=== PATIENT | female | born 1945 | race Caucasian/White ===

== ENCOUNTER 2018-09-24 12:29 | Outpatient (CLI) | payer MEDICARE ==
[2018-09-24] MEDS ORDERED: ISOVUE-370 76%-LOCM 1 ML ONE (15:09)
--- NOTE | 2018-09-24 15:31 | CT ---
CTA ABDOMEN AND PELVIS AND BILATERAL LOWER EXTREMITIES WITH CONTRAST: Date: 09/24/18 Multiple axial tomograms obtained through the abdomen and pelvis and lower extremities following aort ogram protocol with multiplanar reconstruction and 3D postprocessing. INDICATION: Peripheral arterial disease. Atherosclerosis. Left lower extremity arterial disease. Left lower extre mity pain and claudication. FINDINGS: The abdominal aorta shows atherosclerotic calcification. No aneurysmal dilatation. No evidence of dis section. No stenosis seen at the origin of the celiac artery. Mild stenosis at the origin of the superior mese nteric artery, however, this does not appear to be hemodynamically significant. Superior mesenteric a rtery trunk is patent with mild atherosclerotic change. No significant stenosis in the SMA trunk. Both renal arteries are patent. There is evidence of moderate stenosis in the proximal right renal ar linda just beyond its origin from what appeared just to be soft plaque. This stenosis may be hemodynam ically significant (in the 50% diameter range). No significant stenosis in the left renal artery is i dentified. Aortic bifurcation shows atherosclerotic calcification. No evidence of significant stenosis in either common iliac artery. Right lower extremity: The right internal and external iliacs are patent. Atherosclerotic disease seen in the internal iliac . The common femoral shows atherosclerotic disease and evidence of moderate stenosis which does appear hemodynamically significant of at least 50% diameter. There is moderate stenosis at the origin of the right superficial femoral artery with stenosis estima kaylah at greater than 50%. Diffuse atherosclerotic disease throughout the right superficial femoral artery with multiple areas o f high grade stenosis. There is a very high grade stenosis in the mid thigh. There is suggestion of a stent in this portion of the right superficial femoral artery, mid thigh. There appears to be high g rade stenosis within this stent. There is high grade stenosis at Ki's canal. Collateral vessels a rise at this location. Atherosclerotic changes seen in the right popliteal with moderate stenosis. Popliteal trifurcates below the knee space. There is three vessel runoff to the ankle. Left lower extremity: The left internal and external iliacs are patent. Moderate atherosclerotic calcification in the left common femoral and occlusion at the origin of the left superficial femoral artery. There appears to b e reconstitution of Ki's canal via collaterals. Severe atherosclerotic disease involving the left popliteal with areas of high grade stenosis. Popliteal trifurcates below the knee space and there is three vessel seen to the ankle. Soft Tissues: Liver, spleen, and pancreas unremarkable. There is abnormal density in the gallbladder consistent wit h cholelithiasis. Both adrenal glands are prominent, suggesting adrenal hyperplasia. There is evidence of focal nodule in the right adrenal gland measuring up to 2.0 cm. Small bowel loops unremarkable. There is diverticulosis of the left colon. There is focal inflammation surrounding a diverticulum in the lower left colon, in the left lower quadrant, consistent with diverticulitis. No extraluminal flu id or gas or abscess seen. There is an umbilical hernia with mesenteric fat herniated into the hernia. Hernia sac within the sub cutaneous tissues measures 6.0 cm width. IMPRESSION: 1. Severe arterial disease on the left. There is occlusion at the origin of the left superficial fem oral artery. Reconstitution at Ki's canal with diffuse disease throughout the left popliteal and multiple areas of high grade stenosis. 2. Also significant disease in the right lower extremity. Diffuse atherosclerotic disease with high grade stenosis in the right superficial femoral artery and right popliteal as described above. 3. Evidence of significant stenosis in the proximal right renal artery. 4. There is evidence of acute diverticulitis involving the distal left descending colon in the anter ior left lower quadrant. 5. Evidence of cholelithiasis. 6. Bilateral adrenal hyperplasia with evidence of a right adrenal nodule, which is indeterminate. 7. Umbilical hernia. Findings discussed with Dr. Douglas. CODE CR. POS: [facility]
== END 2018-09-24 12:30 | disposition home or self-care (01) ==
LOC: BICCT 12:29
PROVIDERS: ATTEND Thoracic Surgery (Cardiothoracic Vascular Surgery)
DX: I70.90 Unspecified atherosclerosis (principal); I77.9 Disorder of arteries and arterioles, unspecified; I77.1 Stricture of artery; I70.201 Unspecified atherosclerosis of native arteries of extremities, right leg; K80.20 Calculus of gallbladder without cholecystitis without obstruction; I70.1 Atherosclerosis of renal artery; K57.32 Diverticulitis of large intestine without perforation or abscess without bleeding; E27.8 Other specified disorders of adrenal gland; K42.9 Umbilical hernia without obstruction or gangrene
CPT/HCPCS: 75635; 82565; Q9966

== ENCOUNTER 2019-01-18 10:15 | Inpatient (IN) | payer MEDICARE ==
[2019-02-02] MEDS ORDERED: ceFAZolin Sodium (SDC) 2 GM/100 ML BAG ONE (08:15)
[2019-02-02 08:20] LABS: #Eosinphils 0.4 thou/uL (0.0-0.7); #Lymphocytes 1.4 thou/uL (1.20-3.40); #Monocytes 0.6 thou/uL (0.11-0.59); #Neutrophils 5.3 thou/uL (1.40-6.50); %Basophils 0.6 % (0.0-1.0); %Eosinophils 4.8 % (0.0-10.0); %Lymphocytes 18.5 % (21.0-51.0); %Monocytes 7.2 % (0.0-10.0); %Neutrophils 68.9 % (42.0-75.0); Mean Corpuscular HGB CONC 34.1 g/dL (32.0-36.0); Mean Corpuscular Hemoglobin 30.2 pg (27.0-31.0); Mean Corpuscular Volume 88.8 fL (78.0-98.0); Platelet Count 295 thou/uL (130-400); RBC Distribution Width 11.9 % (11.5-14.5); Red Blood Cell (RBC) Count 4.65 mill/uL (4.20-5.40); White Blood Cell (WBC) Count 7.7 thou/uL (4.8-10.8)
[2019-02-02 08:37] LABS: Anion Gap 14 mmol/L (10-20); BUN (Urea Nitrogen) 17 mg/dL (9.8-20.1); Calc. Creatinine Clearance 67 mL/min (70-130); Calcium 10.5 mg/dL (7.8-10.44); Carbon Dioxide 23 mmol/L (23-31); Chloride 105 mmol/L (98-107); Estimated GFR-MDRD 58; Glucose 145 mg/dL (83-110); Potassium 4.9 mmol/L (3.5-5.1); Sodium 137 mmol/L (136-145)
[2019-02-02] MEDS ORDERED: Heparin 5,000 UNITS/ML VIAL ONE (08:59)
[2019-02-02] MEDS ORDERED: Protamine Sulfate 50 MG/5 ML VIAL ONE (08:59)
[2019-02-02] MEDS ORDERED: Fentanyl 100 MCG/2 ML VIAL ONE ×3 (09:06→15:40)
[2019-02-02] MEDS ORDERED: Midazolam HCl 2 mg/2 ml Vial ONE (09:17)
[2019-02-02] MEDS ORDERED: Lidocaine 1% PF 5 ML VIAL ONE ×2 (09:18→11:00)
[2019-02-02] MEDS ORDERED: Rocuronium Bromide 10 MG/ML (10ML VIAL) ONE (11:00)
[2019-02-02] MEDS ORDERED: ePHEDrine 50 MG/ML VIAL ONE (11:00)
[2019-02-02] MEDS ORDERED: PROPOFOL 200 MG/20 ML VIAL ONE (11:00)
[2019-02-02] MEDS ORDERED: Ondansetron PF 4 MG/2 ML Vial ONE (11:00)
[2019-02-02] MEDS ORDERED: PHENYLEPHRINE-NS 100 MCG/ML 10 ML SYRINGE ONE (11:00)
[2019-02-02] MEDS ORDERED: Heparin 10,000 UNITS/ 10 ML VIAL ONE (11:00)
[2019-02-02] MEDS ORDERED: Phenylephrine HCL 10 MG/ML VIAL ONE (11:12)
[2019-02-02] MEDS ORDERED: Promethazine HCl 25 MG/ML VIAL SLOW IVP PRN (15:15)
[2019-02-02] MEDS ORDERED: Promethazine HCl 25 MG/ML VIAL IM PRN (15:15)
[2019-02-02] MEDS ORDERED: Ondansetron HCl/PF 4 MG/2 ML Vial IVP PRN (15:15)
[2019-02-02] MEDS ORDERED: hydrALAZINE 20 MG/ML VIAL SLOW IVP PRN (16:09)
[2019-02-02] MEDS ORDERED: Acetaminophen 325 MG TAB PO PRN (16:09)
[2019-02-02] MEDS ORDERED: PROVENTIL INHALER 6.7 G (200 INHALATIONS) INH PRN (16:09)
[2019-02-02] MEDS ORDERED: Lactated Ringer's 1,000 ML IV SCH (16:09)
[2019-02-02] MEDS ORDERED: Ondansetron PF 4 MG/2 ML Vial IVP PRN (16:09)
[2019-02-02] MEDS: Fentanyl 100 MCG/2 ML VIAL SLOW IVP PRN ×2 (16:50→21:24)
[2019-02-02 17:30] VITALS: BMI 34.5
[2019-02-02] MEDS: Mometasone/Formoterol 120 PUFF INHALER INH SCH (18:09)
[2019-02-02] MEDS: Ramipril 5 MG CAP PO SCH (20:21)
[2019-02-02] MEDS: Carvedilol 6.25 MG TAB PO SCH (20:22)
[2019-02-02] MEDS: Amlodipine 5 MG TAB PO SCH (20:22)
[2019-02-02] MEDS: Atorvastatin Calcium 10 MG TAB PO SCH (20:22)
[2019-02-02] MEDS: Dorzolamide HCl 2% Ophth Soln 10 ml Bottle EA EYE SCH (20:23)
[2019-02-02] MEDS: Gabapentin 300 MG CAP PO SCH (20:23)
[2019-02-02] MEDS: Latanoprost 0.005% Ophth Soln 2.5 ml Bottle EA EYE SCH (20:23)
[2019-02-02] MEDS: HYDROcodone/Acetaminophen 5/325 mg Tablet PO PRN (20:30)
--- NOTE | 2019-02-02 20:38 | OP ---
DATE OF PROCEDURE: 02/02/2019 PREOPERATIVE DIAGNOSIS: Nonhealing ulcer, left foot, with peripheral arterial disease. PROCEDURE PERFORMED: Left common and profunda femoral endarterectomy with saphenous vein patch angioplasty and then left femoral to popliteal bypass below the knee with a 6-mm thin-walled ringed Bullock-Stuart. ANESTHESIA: General. ESTIMATED BLOOD LOSS: 300. DESCRIPTION OF PROCEDURE: After adequate anesthesia had been obtained, tape was used to elevate her abdominal panniculus off her groin area, and she was then placed in the Trendelenburg position and prepped and draped. Incision was made in the left groin, isolating the common femoral artery from the external iliac artery above the inguinal ligament to about 4 cm down the profunda branch into the bifurcation. There was also a posterior branch in the mid common femoral artery controlled. Following this, a segment of saphenous vein was harvested, and it was very small, but usable for a patch. The popliteal artery was isolated below the knee and was heavily calcified with skip areas of soft plaque. A tunneler was then brought through a tunnel posterior to the knee, and the patient was heparinized. Popliteal artery was opened and partially endarterectomized to allow the Bullock-Stuart graft to be sewn into place. Following completion of this, the graft which had already been brought through the tunnel was clamped. Clamps were applied to the external iliac artery, circumflex, femoral branches, and profunda branches. Arteriotomy was then made, and a heavily-calcified common femoral artery was slowly dealt with removing calcium and segments. The resulting femoral artery was rather thin-walled. The profunda femoral artery was essentially occluded prior to the bifurcation and then plaque extended into both branches, and this was removed as best could be done. The area was thoroughly irrigated, and a 6-0 Prolene suture was then used to sew a long vein patch on this arteriotomy. Following this, it was inspected for hemostasis. Following this, the incision was made in the middle of the vein, used for the patch, and the Bullock-Stuart graft anastomosed proximally. Flow was then restored with good pulsations distally. After obtaining hemostasis, the wound was irrigated and closed in layers. Job ID: [id number]
[2019-02-02] MEDS: Insulin Regular 300 UNITS/3 ML VIAL SC PRN (21:27)
[2019-02-02] MEDS: CEFAZOLIN 2 GM, Admixture Fee 1 EACH in Sodium Chloride 0.9% 100 ML IVPB SCH (23:48)
[2019-02-03 04:18] LABS: #Eosinphils 0.3 thou/uL (0.0-0.7); #Lymphocytes 1.2 thou/uL (1.20-3.40); #Neutrophils 6.3 thou/uL (1.40-6.50); %Basophils 0.2 % (0.0-1.0); %Eosinophils 2.9 % (0.0-10.0); %Lymphocytes 14.1 % (21.0-51.0); %Monocytes 10.8 % (0.0-10.0); Hemoglobin 10.9 g/dL (12.0-16.0); Mean Corpuscular HGB CONC 33.1 g/dL (32.0-36.0); Mean Corpuscular Hemoglobin 29.9 pg (27.0-31.0); Mean Corpuscular Volume 90.5 fL (78.0-98.0); Mean Platelet Volume 6.7 fL (7.4-10.4); Platelet Count 233 thou/uL (130-400); RBC Distribution Width 11.8 % (11.5-14.5); Red Blood Cell (RBC) Count 3.66 mill/uL (4.20-5.40); White Blood Cell (WBC) Count 8.7 thou/uL (4.8-10.8)
[2019-02-03 05:07] LABS: Anion Gap 9 mmol/L (10-20); BUN (Urea Nitrogen) 13 mg/dL (9.8-20.1); Calc. Creatinine Clearance 77 mL/min (70-130); Calcium 8.1 mg/dL (7.8-10.44); Carbon Dioxide 24 mmol/L (23-31); Chloride 106 mmol/L (98-107); Estimated GFR-MDRD 67; Glucose 118 mg/dL (83-110); Potassium 4.3 mmol/L (3.5-5.1); Sodium 135 mmol/L (136-145)
[2019-02-03] MEDS: Levothyroxine Sodium 112 MCG TAB PO SCH (05:32)
[2019-02-03] MEDS: HYDROcodone/Acetaminophen 5/325 mg Tablet PO PRN ×3 (05:32→22:58)
[2019-02-03] MEDS: Mometasone/Formoterol 120 PUFF INHALER INH SCH ×2 (07:45→19:36)
[2019-02-03] MEDS: Dorzolamide HCl 2% Ophth Soln 10 ml Bottle EA EYE SCH ×2 (08:16→20:30)
[2019-02-03] MEDS: CEFAZOLIN 2 GM, Admixture Fee 1 EACH in Sodium Chloride 0.9% 100 ML IVPB SCH (08:16)
[2019-02-03] MEDS: Gabapentin 300 MG CAP PO SCH ×3 (08:17→20:30)
[2019-02-03] MEDS: Ramipril 5 MG CAP PO SCH ×2 (08:17→20:29)
[2019-02-03] MEDS: Carvedilol 6.25 MG TAB PO SCH ×2 (08:17→20:29)
[2019-02-03] MEDS: metFORMIN 500 MG TAB PO SCH ×2 (08:18→18:32)
[2019-02-03] MEDS: Clopidogrel Bisulfate 75 MG TAB PO SCH (08:18)
[2019-02-03] MEDS: Amlodipine 5 MG TAB PO SCH (08:18)
[2019-02-03] MEDS: Aspirin Chewable 81 MG TAB PO SCH (08:23)
[2019-02-03] MEDS: Insulin Regular 300 UNITS/3 ML VIAL SC PRN (11:38)
[2019-02-03] MEDS ORDERED: CEFAZOLIN 2 GM in Premix Bag 1 BAG IVPB SCH (16:00)
[2019-02-03] MEDS: Fentanyl 100 MCG/2 ML VIAL SLOW IVP PRN (20:27)
[2019-02-03] MEDS: Atorvastatin Calcium 10 MG TAB PO SCH (20:29)
[2019-02-03] MEDS: Latanoprost 0.005% Ophth Soln 2.5 ml Bottle EA EYE SCH (20:31)
[2019-02-04 05:58] LABS: #Eosinphils 0.2 thou/uL (0.0-0.7); #Lymphocytes 1.2 thou/uL (1.20-3.40); #Monocytes 1.1 thou/uL (0.11-0.59); #Neutrophils 5.8 thou/uL (1.40-6.50); %Basophils 0.3 % (0.0-1.0); %Eosinophils 2.6 % (0.0-10.0); %Lymphocytes 14.3 % (21.0-51.0); %Monocytes 13.2 % (0.0-10.0); %Neutrophils 69.7 % (42.0-75.0); Mean Corpuscular HGB CONC 33.2 g/dL (32.0-36.0); Mean Corpuscular Hemoglobin 30.2 pg (27.0-31.0); Mean Corpuscular Volume 90.8 fL (78.0-98.0); Mean Platelet Volume 7.1 fL (7.4-10.4); Platelet Count 194 thou/uL (130-400); RBC Distribution Width 11.7 % (11.5-14.5); White Blood Cell (WBC) Count 8.4 thou/uL (4.8-10.8)
[2019-02-04] MEDS ORDERED: Furosemide 40 MG TAB PO SCH (06:00)
[2019-02-04] MEDS ORDERED: Furosemide 20 MG TAB PO SCH (06:00)
[2019-02-04 06:14] LABS: Anion Gap 12 mmol/L (10-20); BUN (Urea Nitrogen) 14 mg/dL (9.8-20.1); Calc. Creatinine Clearance 75 mL/min (70-130); Calcium 7.9 mg/dL (7.8-10.44); Carbon Dioxide 23 mmol/L (23-31); Chloride 105 mmol/L (98-107); Estimated GFR-MDRD 66; Glucose 114 mg/dL (83-110); Sodium 136 mmol/L (136-145)
[2019-02-04] MEDS: HYDROcodone/Acetaminophen 5/325 mg Tablet PO PRN ×4 (06:17→21:20)
[2019-02-04] MEDS: Levothyroxine Sodium 112 MCG TAB PO SCH (06:18)
[2019-02-04] MEDS: Mometasone/Formoterol 120 PUFF INHALER INH SCH ×2 (07:48→19:37)
[2019-02-04] MEDS ORDERED: Amlodipine 5 MG TAB PO SCH (09:00)
[2019-02-04] MEDS: Gabapentin 300 MG CAP PO SCH ×3 (09:12→21:20)
[2019-02-04] MEDS: metFORMIN 500 MG TAB PO SCH ×2 (09:12→17:32)
[2019-02-04] MEDS: Clopidogrel Bisulfate 75 MG TAB PO SCH (09:13)
[2019-02-04] MEDS: Ramipril 5 MG CAP PO SCH ×2 (09:13→21:19)
[2019-02-04] MEDS: Aspirin Chewable 81 MG TAB PO SCH (09:14)
[2019-02-04] MEDS: Carvedilol 6.25 MG TAB PO SCH ×2 (09:14→21:19)
[2019-02-04] MEDS: Dorzolamide HCl 2% Ophth Soln 10 ml Bottle EA EYE SCH ×2 (09:17→21:22)
[2019-02-04] MEDS: Atorvastatin Calcium 10 MG TAB PO SCH (21:19)
[2019-02-04] MEDS: Latanoprost 0.005% Ophth Soln 2.5 ml Bottle EA EYE SCH (21:22)
[2019-02-05] MEDS: Levothyroxine Sodium 112 MCG TAB PO SCH (06:01)
[2019-02-05] MEDS: HYDROcodone/Acetaminophen 5/325 mg Tablet PO PRN ×4 (06:01→21:32)
[2019-02-05] MEDS: Mometasone/Formoterol 120 PUFF INHALER INH SCH ×2 (06:58→19:06)
[2019-02-05] MEDS: Clopidogrel Bisulfate 75 MG TAB PO SCH (08:40)
[2019-02-05] MEDS: metFORMIN 500 MG TAB PO SCH ×2 (08:40→17:56)
[2019-02-05] MEDS: Gabapentin 300 MG CAP PO SCH ×3 (08:40→21:31)
[2019-02-05] MEDS: Aspirin Chewable 81 MG TAB PO SCH (08:41)
[2019-02-05] MEDS: Carvedilol 6.25 MG TAB PO SCH ×2 (08:41→21:30)
[2019-02-05] MEDS: Ramipril 5 MG CAP PO SCH ×2 (08:42→21:31)
[2019-02-05] MEDS: Dorzolamide HCl 2% Ophth Soln 10 ml Bottle EA EYE SCH ×2 (09:34→21:33)
[2019-02-05] MEDS: Metamucil PACK PO SCH (09:34)
[2019-02-05] MEDS: Milk Of Magnesia 30 ML UDCUP PO PRN (17:59)
[2019-02-05] MEDS: Atorvastatin Calcium 10 MG TAB PO SCH (21:31)
[2019-02-05] MEDS: Latanoprost 0.005% Ophth Soln 2.5 ml Bottle EA EYE SCH (21:33)
[2019-02-06] MEDS: HYDROcodone/Acetaminophen 5/325 mg Tablet PO PRN ×4 (06:02→21:25)
[2019-02-06] MEDS: Levothyroxine Sodium 112 MCG TAB PO SCH (06:02)
[2019-02-06] MEDS: Mometasone/Formoterol 120 PUFF INHALER INH SCH ×2 (07:09→19:42)
[2019-02-06] MEDS: Metamucil PACK PO SCH (08:45)
[2019-02-06] MEDS: Gabapentin 300 MG CAP PO SCH ×3 (08:46→21:25)
[2019-02-06] MEDS: Ramipril 5 MG CAP PO SCH ×2 (08:46→21:24)
[2019-02-06] MEDS: Carvedilol 6.25 MG TAB PO SCH ×2 (08:47→21:24)
[2019-02-06] MEDS: Aspirin Chewable 81 MG TAB PO SCH (08:47)
[2019-02-06] MEDS: Clopidogrel Bisulfate 75 MG TAB PO SCH (08:48)
[2019-02-06] MEDS: metFORMIN 500 MG TAB PO SCH ×2 (08:48→17:04)
[2019-02-06] MEDS: Dorzolamide HCl 2% Ophth Soln 10 ml Bottle EA EYE SCH ×2 (09:02→21:27)
[2019-02-06] MEDS: Milk Of Magnesia 30 ML UDCUP PO PRN (11:49)
[2019-02-06] MEDS: Insulin Regular 300 UNITS/3 ML VIAL SC PRN (17:05)
[2019-02-06] MEDS: Atorvastatin Calcium 10 MG TAB PO SCH (21:25)
[2019-02-06] MEDS: Latanoprost 0.005% Ophth Soln 2.5 ml Bottle EA EYE SCH (21:26)
[2019-02-07] MEDS: Levothyroxine Sodium 112 MCG TAB PO SCH (05:43)
[2019-02-07] MEDS: HYDROcodone/Acetaminophen 5/325 mg Tablet PO PRN ×3 (05:43→21:38)
[2019-02-07] MEDS: Mometasone/Formoterol 120 PUFF INHALER INH SCH ×2 (07:14→18:16)
[2019-02-07] MEDS: metFORMIN 500 MG TAB PO SCH ×2 (08:36→17:46)
[2019-02-07] MEDS: Carvedilol 6.25 MG TAB PO SCH ×2 (08:37→21:34)
[2019-02-07] MEDS: Aspirin Chewable 81 MG TAB PO SCH (08:37)
[2019-02-07] MEDS: Metamucil PACK PO SCH (08:38)
[2019-02-07] MEDS: Gabapentin 300 MG CAP PO SCH ×3 (08:38→21:34)
[2019-02-07] MEDS: Ramipril 5 MG CAP PO SCH ×2 (08:38→21:35)
[2019-02-07] MEDS: Dorzolamide HCl 2% Ophth Soln 10 ml Bottle EA EYE SCH ×2 (08:38→21:35)
[2019-02-07] MEDS: Clopidogrel Bisulfate 75 MG TAB PO SCH (08:38)
[2019-02-07] MEDS ORDERED: Polyethylene Glycol 3350 17 GM Packet PO PRN (08:44)
[2019-02-07] MEDS: Atorvastatin Calcium 10 MG TAB PO SCH (21:35)
[2019-02-07] MEDS: Latanoprost 0.005% Ophth Soln 2.5 ml Bottle EA EYE SCH (21:35)
[2019-02-08] MEDS: Levothyroxine Sodium 112 MCG TAB PO SCH (07:00)
[2019-02-08] MEDS: Mometasone/Formoterol 120 PUFF INHALER INH SCH (07:03)
[2019-02-08] MEDS: metFORMIN 500 MG TAB PO SCH (09:35)
[2019-02-08] MEDS: Gabapentin 300 MG CAP PO SCH (09:36)
[2019-02-08] MEDS: Ramipril 5 MG CAP PO SCH (09:36)
[2019-02-08] MEDS: Metamucil PACK PO SCH (09:36)
[2019-02-08] MEDS: Aspirin Chewable 81 MG TAB PO SCH (09:36)
[2019-02-08] MEDS: Clopidogrel Bisulfate 75 MG TAB PO SCH (09:36)
[2019-02-08] MEDS: Carvedilol 6.25 MG TAB PO SCH (09:36)
[2019-02-08] MEDS: Dorzolamide HCl 2% Ophth Soln 10 ml Bottle EA EYE SCH (09:37)
--- NOTE | 2019-02-08 09:57 | DIS ---
DATE OF ADMISSION: 02/02/2019 DATE OF DISCHARGE: 02/08/2019 This is a 73-year-old female who was admitted for a nonhealing wound of the left foot. She underwent on 02/02, a left common and profunda femoral endarterectomy with saphenous vein patch and then a left femoral to popliteal below-knee with a 6-mm thin-walled ringed [place]-Stuart. Her saphenous vein was inadequate for anything more than the patch in the groin and was not available for a vein chimney distally. Postoperatively, she had a good pulse, was ambulating the halls, did have some edema. Otherwise, her blood pressure was well controlled without her amlodipine. She will be discharged home to resume all of her medicines except amlodipine and will receive a prescription for Plavix 75. I will follow her up in 2-3 weeks. Specific instructions have been given for daily cleaning of the left groin wound and a dressing with a dry dressing due to her very sizable panniculus overlying this area. Job ID: [id number]
[2019-02-08 11:08] VITALS: BP 158/77; TEMP 97.8
== END 2019-02-08 11:20 | disposition home or self-care (01) | DRG 254 ==
LOC: SURG A 02-02 07:10 → SJJU 02-02 16:26
PROVIDERS: ADMIT Thoracic Surgery (Cardiothoracic Vascular Surgery); ATTEND Thoracic Surgery (Cardiothoracic Vascular Surgery)
PROC: 04CL0ZZ Extirpation of Matter from Left Femoral Artery, Open Approach (ICD-10-PCS; principal; 2019-02-02)
PROC: 04UL07Z Supplement Left Femoral Artery with Autologous Tissue Substitute, Open Approach (ICD-10-PCS; 2019-02-02)
PROC: 041L0JL Bypass Left Femoral Artery to Popliteal Artery with Synthetic Substitute, Open Approach (ICD-10-PCS; 2019-02-02)
DX: I70.25 Atherosclerosis of native arteries of other extremities with ulceration (principal); I25.10 Atherosclerotic heart disease of native coronary artery without angina pectoris; L97.529 Non-pressure chronic ulcer of other part of left foot with unspecified severity; I10 Essential (primary) hypertension; E11.9 Type 2 diabetes mellitus without complications; J45.909 Unspecified asthma, uncomplicated; Z79.899 Other long term (current) drug therapy; Z86.73 Personal history of transient ischemic attack (TIA), and cerebral infarction without residual deficits; Z88.2 Allergy status to sulfonamides
CPT/HCPCS: 36415; 36416; 80048; 85025; 86850; 86900; 86901; J0690; J1642; J1644; J1815; J2001; J2250; J2370; J2405; J2704; J2720; J3010; J3490

== ENCOUNTER 2019-01-18 10:17 | Outpatient (CLI) | payer MEDICARE ==
[2019-01-18 12:41] LABS: Hemoglobin 13.3 g/dL (12.0-16.0); Mean Corpuscular HGB CONC 33.2 g/dL (32.0-36.0); Mean Corpuscular Volume 87.2 fL (78.0-98.0); Mean Platelet Volume 7.1 fL (7.4-10.4); Platelet Count 277 thou/uL (130-400); RBC Distribution Width 12.1 % (11.5-14.5); White Blood Cell (WBC) Count 9.6 thou/uL (4.8-10.8)
[2019-01-18 13:31] LABS: Anion Gap 16 mmol/L (10-20); BUN (Urea Nitrogen) 12 mg/dL (9.8-20.1); Calc. Creatinine Clearance 0 mL/min (70-130); Calcium 9.8 mg/dL (7.8-10.44); Carbon Dioxide 21 mmol/L (23-31); Chloride 103 mmol/L (98-107); Estimated GFR-MDRD 67; Glucose 94 mg/dL (83-110); Sodium 135 mmol/L (136-145)
--- NOTE | 2019-01-19 13:21 | EKG ---
Test Reason : Blood Pressure : / mmHG Vent. Rate : 064 BPM Atrial Rate : 064 BPM P-R Int : 176 ms QRS Dur : 080 ms QT Int : 394 ms P-R-T Axes : 047 018 045 degrees QTc Int : 406 ms Normal sinus rhythm Low voltage QRS Cannot rule out Anterior infarct , age undetermined Abnormal ECG No previous ECGs available Confirmed by JOSE ZAVALETA (2) on 01/19/2019 1:20:45 PM Referred By: MAYURI Confirmed By:JOSE ZAVALETA
== END 2019-01-18 10:18 | disposition home or self-care (01) ==
LOC: LABBT 10:17
PROVIDERS: ATTEND Thoracic Surgery (Cardiothoracic Vascular Surgery)
DX: Z01.818 Encounter for other preprocedural examination (principal); I73.9 Peripheral vascular disease, unspecified; I25.10 Atherosclerotic heart disease of native coronary artery without angina pectoris
CPT/HCPCS: 80048; 85027; 86850; 86900; 86901; 93005; 93010

== ENCOUNTER 2019-02-14 14:40 | Inpatient (IN) | payer MEDICARE ==
[2019-02-14 17:23] VITALS: BMI 35.0
[2019-02-14 18:52] LABS: #Eosinphils 0.4 thou/uL (0.0-0.7); #Lymphocytes 1.9 thou/uL (1.20-3.40); #Monocytes 0.6 thou/uL (0.11-0.59); #Neutrophils 5.8 thou/uL (1.40-6.50); %Basophils 0.1 % (0.0-1.0); %Eosinophils 4.6 % (0.0-10.0); %Lymphocytes 21.5 % (21.0-51.0); %Monocytes 7.4 % (0.0-10.0); %Neutrophils 66.4 % (42.0-75.0); Hemoglobin 11.3 g/dL (12.0-16.0); Mean Corpuscular Hemoglobin 29.7 pg (27.0-31.0); Mean Corpuscular Volume 89.9 fL (78.0-98.0); Mean Platelet Volume 6.8 fL (7.4-10.4); Platelet Count 390 thou/uL (130-400); RBC Distribution Width 11.6 % (11.5-14.5); White Blood Cell (WBC) Count 8.7 thou/uL (4.8-10.8)
--- NOTE | 2019-02-14 18:53 | HP ---
HISTORY OF PRESENT ILLNESS: This is a 73-year-old diabetic female, who underwent left common and profunda femoral endarterectomy with saphenous vein patch and a left femoral-popliteal bypass with [place]-Stuart to below the knee on 02/02. She was discharged from the hospital on 02/08. Discharge instructions included local daily wound care to the groin incision due to a large abdominal panniculus and concerns about wound dehiscence. She called today because the home health nurse who has been changing the wound dressing on Thursday, Thursday and Thursday noticed some drainage with no erythema. PAST MEDICAL HISTORY: Positive for hypertension, diabetes mellitus, peripheral vascular disease, dyslipidemia, glaucoma, asthma. PAST SURGICAL HISTORY: Otherwise includes a left carotid endarterectomy. ALLERGIES: TO SULFA. MEDICATIONS: Multiple includes, 1. Levothyroxine 112 mcg daily. 2. Gabapentin 300 t.i.d. 3. Prilosec 20 a day. 4. Ramipril 10 a day. 5. Trazodone 150 at bedtime. 6. Metformin 1000 b.i.d. 7. Atorvastatin 10 a day. 8. Aspirin 325 a day. 9. Plavix 75 a day. 10. Coreg 12.5 b.i.d. 11. She also uses a Ventolin inhaler as well as Breo Ellipta inhaler. 12. She uses eye drops, Lumigan and dorzolamide. 13. She also takes folic acid, vitamin D3, and tramadol. PHYSICAL EXAMINATION: GENERAL: On examination, she is alert, cooperative, short-statured lady in no distress. VITAL SIGNS: Recorded height of 5 feet, weight 182, BMI 35.5. Blood pressure 160/60, heart rate 67. CARDIAC: Regular rate and rhythm. No murmurs. LUNGS: Clear to auscultation bilaterally. EXTREMITIES: She has a wound in her left groin with some solano fat necrosis on the skin edges, debrided. There is no surrounding erythema. The fat appears viable next layer deep. She has trace edema in the left leg and her other two incisions are healing nicely. PLAN: At this time is for admission for wound care because the patient cannot care for this at home, and home health is not doing an adequate job. We will give some prophylactic antibiotics, but no evidence of wound infection at this time. Job ID: [id number] [facility]
[2019-02-14 19:12] LABS: Anion Gap 14 mmol/L (10-20); BUN (Urea Nitrogen) 10 mg/dL (9.8-20.1); Calc. Creatinine Clearance 76 mL/min (70-130); Calcium 9.2 mg/dL (7.8-10.44); Carbon Dioxide 23 mmol/L (23-31); Chloride 104 mmol/L (98-107); Estimated GFR-MDRD 66; Glucose 86 mg/dL (83-110); Potassium 4.3 mmol/L (3.5-5.1); Sodium 137 mmol/L (136-145)
[2019-02-14] MEDS: Mometasone 100 MCG HFA INHALER INH SCH (20:36)
[2019-02-14] MEDS: Atorvastatin Calcium 10 MG TAB PO SCH (20:45)
[2019-02-14] MEDS: Carvedilol 6.25 MG TAB PO SCH (20:46)
[2019-02-14] MEDS: Gabapentin 300 MG CAP PO SCH (20:48)
[2019-02-14] MEDS: traMADol HCl 50 MG TAB PO PRN (20:48)
[2019-02-14] MEDS ORDERED: metFORMIN 500 MG TAB PO SCH (21:00)
[2019-02-14] MEDS: Dorzolamide HCl 2% Ophth Soln 10 ml Bottle EA EYE SCH (21:08)
[2019-02-14] MEDS: Latanoprost 0.005% Ophth Soln 2.5 ml Bottle EA EYE SCH (21:46)
[2019-02-14] MEDS: traZODone HCl 150 MG TAB PO PRN (22:22)
[2019-02-15] MEDS: Levothyroxine Sodium 112 MCG TAB PO SCH (05:53)
[2019-02-15] MEDS: Mometasone 100 MCG HFA INHALER INH SCH ×2 (07:24→18:34)
[2019-02-15] MEDS: Ramipril 5 MG CAP PO SCH (07:54)
[2019-02-15] MEDS: Carvedilol 6.25 MG TAB PO SCH ×2 (07:55→20:03)
[2019-02-15] MEDS: Aspirin 81 mg Enteric Coated Tablet PO SCH (07:55)
[2019-02-15] MEDS: Clopidogrel Bisulfate 75 MG TAB PO SCH (07:55)
[2019-02-15] MEDS: metFORMIN 500 MG TAB PO SCH ×2 (07:55→17:02)
[2019-02-15] MEDS: Dorzolamide HCl 2% Ophth Soln 10 ml Bottle EA EYE SCH ×3 (07:56→19:56)
[2019-02-15] MEDS: Gabapentin 300 MG CAP PO SCH ×3 (07:56→20:03)
[2019-02-15] MEDS ORDERED: Latanoprost 0.005% Ophth Soln 2.5 ml Bottle EA EYE SCH ×2 (09:00→21:00)
[2019-02-15] MEDS: traMADol HCl 50 MG TAB PO PRN ×2 (10:17→18:11)
[2019-02-15] MEDS: Latanoprost 0.005% Ophth Soln 2.5 ml Bottle EA EYE SCH (20:02)
[2019-02-15] MEDS: Atorvastatin Calcium 10 MG TAB PO SCH (20:03)
[2019-02-15] MEDS: traZODone HCl 150 MG TAB PO PRN ×2 (20:51→20:53)
[2019-02-16] MEDS: Levothyroxine Sodium 112 MCG TAB PO SCH (06:10)
[2019-02-16] MEDS: Mometasone 100 MCG HFA INHALER INH SCH ×2 (07:03→18:11)
[2019-02-16] MEDS: Ramipril 5 MG CAP PO SCH (08:38)
[2019-02-16] MEDS: Aspirin 81 mg Enteric Coated Tablet PO SCH (08:39)
[2019-02-16] MEDS: Gabapentin 300 MG CAP PO SCH ×3 (08:39→20:28)
[2019-02-16] MEDS: Clopidogrel Bisulfate 75 MG TAB PO SCH (08:40)
[2019-02-16] MEDS: Amlodipine 5 MG TAB PO SCH (08:40)
[2019-02-16] MEDS: metFORMIN 500 MG TAB PO SCH ×2 (08:40→17:18)
[2019-02-16] MEDS: Carvedilol 6.25 MG TAB PO SCH ×2 (08:40→20:27)
[2019-02-16] MEDS: traMADol HCl 50 MG TAB PO PRN ×2 (08:41→17:21)
[2019-02-16] MEDS: Cefepime 1 GM in Sodium Chloride 0.9% 100 ML IVPB SCH ×2 (08:45→20:27)
[2019-02-16] MEDS: Dorzolamide HCl 2% Ophth Soln 10 ml Bottle EA EYE SCH ×3 (08:52→20:25)
[2019-02-16] MEDS: Metamucil PACK PO SCH ×2 (08:55→20:26)
[2019-02-16] MEDS: Latanoprost 0.005% Ophth Soln 2.5 ml Bottle EA EYE SCH (20:25)
[2019-02-16] MEDS: Atorvastatin Calcium 10 MG TAB PO SCH (20:27)
[2019-02-16] MEDS: traZODone HCl 150 MG TAB PO PRN (21:22)
[2019-02-17] MEDS: Levothyroxine Sodium 112 MCG TAB PO SCH (05:41)
[2019-02-17] MEDS: traMADol HCl 50 MG TAB PO PRN ×2 (06:48→14:53)
[2019-02-17] MEDS: Mometasone 100 MCG HFA INHALER INH SCH ×2 (06:54→18:39)
[2019-02-17] MEDS: Carvedilol 6.25 MG TAB PO SCH ×2 (08:17→20:17)
[2019-02-17] MEDS: Ramipril 5 MG CAP PO SCH (08:17)
[2019-02-17] MEDS: Gabapentin 300 MG CAP PO SCH ×3 (08:18→20:17)
[2019-02-17] MEDS: Aspirin 81 mg Enteric Coated Tablet PO SCH (08:18)
[2019-02-17] MEDS: metFORMIN 500 MG TAB PO SCH ×2 (08:18→14:52)
[2019-02-17] MEDS: Amlodipine 5 MG TAB PO SCH (08:19)
[2019-02-17] MEDS: Dorzolamide HCl 2% Ophth Soln 10 ml Bottle EA EYE SCH ×3 (08:19→20:18)
[2019-02-17] MEDS: Clopidogrel Bisulfate 75 MG TAB PO SCH (08:19)
[2019-02-17] MEDS: Cefepime 1 GM in Sodium Chloride 0.9% 100 ML IVPB SCH ×2 (08:20→20:18)
[2019-02-17] MEDS: Metamucil PACK PO SCH ×2 (09:07→20:19)
[2019-02-17] MEDS: Atorvastatin Calcium 10 MG TAB PO SCH (20:17)
[2019-02-17] MEDS: Latanoprost 0.005% Ophth Soln 2.5 ml Bottle EA EYE SCH (20:19)
[2019-02-17] MEDS: traZODone HCl 150 MG TAB PO PRN (21:39)
[2019-02-18] MEDS: Levothyroxine Sodium 112 MCG TAB PO SCH (05:17)
[2019-02-18] MEDS: traMADol HCl 50 MG TAB PO PRN ×2 (05:18→14:48)
[2019-02-18] MEDS: Mometasone 100 MCG HFA INHALER INH SCH ×2 (07:03→19:08)
[2019-02-18] MEDS: Cefepime 1 GM in Sodium Chloride 0.9% 100 ML IVPB SCH ×2 (07:48→21:19)
[2019-02-18] MEDS: Aspirin 81 mg Enteric Coated Tablet PO SCH (07:48)
[2019-02-18] MEDS: Gabapentin 300 MG CAP PO SCH ×3 (07:49→21:19)
[2019-02-18] MEDS: Carvedilol 6.25 MG TAB PO SCH ×2 (07:49→21:19)
[2019-02-18] MEDS: Clopidogrel Bisulfate 75 MG TAB PO SCH (07:49)
[2019-02-18] MEDS: Amlodipine 5 MG TAB PO SCH (07:49)
[2019-02-18] MEDS: metFORMIN 500 MG TAB PO SCH ×2 (07:50→16:28)
[2019-02-18] MEDS: Metamucil PACK PO SCH ×2 (07:51→21:21)
[2019-02-18] MEDS: Dorzolamide HCl 2% Ophth Soln 10 ml Bottle EA EYE SCH ×3 (08:30→21:21)
[2019-02-18] MEDS: Ramipril 5 MG CAP PO SCH (08:30)
[2019-02-18] MEDS: Atorvastatin Calcium 10 MG TAB PO SCH (21:19)
[2019-02-18] MEDS: Latanoprost 0.005% Ophth Soln 2.5 ml Bottle EA EYE SCH (21:22)
[2019-02-18] MEDS: traZODone HCl 150 MG TAB PO PRN (21:24)
[2019-02-19] MEDS: Levothyroxine Sodium 112 MCG TAB PO SCH (06:27)
[2019-02-19] MEDS: Mometasone 100 MCG HFA INHALER INH SCH ×2 (06:43→20:14)
[2019-02-19] MEDS: Cefepime 1 GM in Sodium Chloride 0.9% 100 ML IVPB SCH ×2 (07:31→19:57)
[2019-02-19] MEDS: Ramipril 5 MG CAP PO SCH (07:32)
[2019-02-19] MEDS: metFORMIN 500 MG TAB PO SCH ×2 (07:32→16:49)
[2019-02-19] MEDS: Aspirin 81 mg Enteric Coated Tablet PO SCH (07:32)
[2019-02-19] MEDS: Clopidogrel Bisulfate 75 MG TAB PO SCH (07:32)
[2019-02-19] MEDS: Amlodipine 5 MG TAB PO SCH (07:32)
[2019-02-19] MEDS: Gabapentin 300 MG CAP PO SCH ×3 (07:32→19:55)
[2019-02-19] MEDS: Carvedilol 6.25 MG TAB PO SCH ×2 (07:33→19:55)
[2019-02-19] MEDS: Dorzolamide HCl 2% Ophth Soln 10 ml Bottle EA EYE SCH ×3 (07:33→19:56)
[2019-02-19] MEDS: Metamucil PACK PO SCH ×2 (07:35→19:57)
[2019-02-19] MEDS: traMADol HCl 50 MG TAB PO PRN ×2 (11:20→19:53)
[2019-02-19] MEDS: Atorvastatin Calcium 10 MG TAB PO SCH (19:55)
[2019-02-19] MEDS: Latanoprost 0.005% Ophth Soln 2.5 ml Bottle EA EYE SCH (19:56)
[2019-02-19] MEDS: traZODone HCl 150 MG TAB PO PRN (21:16)
[2019-02-20] MEDS: Levothyroxine Sodium 112 MCG TAB PO SCH (05:53)
[2019-02-20] MEDS: Mometasone 100 MCG HFA INHALER INH SCH ×2 (07:40→18:59)
[2019-02-20] MEDS: Amlodipine 5 MG TAB PO SCH (08:15)
[2019-02-20] MEDS: Clopidogrel Bisulfate 75 MG TAB PO SCH (08:15)
[2019-02-20] MEDS: metFORMIN 500 MG TAB PO SCH ×2 (08:15→16:27)
[2019-02-20] MEDS: Ramipril 5 MG CAP PO SCH (08:15)
[2019-02-20] MEDS: Gabapentin 300 MG CAP PO SCH ×3 (08:15→20:31)
[2019-02-20] MEDS: Aspirin 81 mg Enteric Coated Tablet PO SCH (08:15)
[2019-02-20] MEDS: Carvedilol 6.25 MG TAB PO SCH ×2 (08:15→20:31)
[2019-02-20] MEDS: Metamucil PACK PO SCH ×2 (08:16→20:35)
[2019-02-20] MEDS: Cefepime 1 GM in Sodium Chloride 0.9% 100 ML IVPB SCH ×2 (08:16→20:35)
[2019-02-20] MEDS: Dorzolamide HCl 2% Ophth Soln 10 ml Bottle EA EYE SCH ×3 (08:16→20:38)
[2019-02-20] MEDS: AMOXicillin 250 MG CAP PO SCH ×2 (15:22→20:31)
[2019-02-20] MEDS: traMADol HCl 50 MG TAB PO PRN ×2 (16:27→21:48)
[2019-02-20] MEDS: traZODone HCl 150 MG TAB PO PRN (20:31)
[2019-02-20] MEDS: Atorvastatin Calcium 10 MG TAB PO SCH (20:31)
[2019-02-20] MEDS: Latanoprost 0.005% Ophth Soln 2.5 ml Bottle EA EYE SCH (20:37)
[2019-02-21] MEDS: Levothyroxine Sodium 112 MCG TAB PO SCH (06:12)
[2019-02-21] MEDS: Cefepime 1 GM in Sodium Chloride 0.9% 100 ML IVPB SCH ×2 (08:12→20:21)
[2019-02-21] MEDS: Aspirin 81 mg Enteric Coated Tablet PO SCH (08:13)
[2019-02-21] MEDS: metFORMIN 500 MG TAB PO SCH ×2 (08:13→17:28)
[2019-02-21] MEDS: Gabapentin 300 MG CAP PO SCH ×3 (08:13→20:21)
[2019-02-21] MEDS: Carvedilol 6.25 MG TAB PO SCH ×2 (08:13→20:21)
[2019-02-21] MEDS: Clopidogrel Bisulfate 75 MG TAB PO SCH (08:13)
[2019-02-21] MEDS: Ramipril 5 MG CAP PO SCH (08:13)
[2019-02-21] MEDS: Amlodipine 5 MG TAB PO SCH (08:13)
[2019-02-21] MEDS: Dorzolamide HCl 2% Ophth Soln 10 ml Bottle EA EYE SCH ×3 (08:14→20:22)
[2019-02-21] MEDS: Metamucil PACK PO SCH ×2 (08:20→20:22)
[2019-02-21] MEDS: AMOXicillin 250 MG CAP PO SCH ×3 (08:20→20:21)
[2019-02-21] MEDS: Mometasone 100 MCG HFA INHALER INH SCH ×2 (08:28→19:48)
[2019-02-21] MEDS: traMADol HCl 50 MG TAB PO PRN (18:25)
[2019-02-21] MEDS: Atorvastatin Calcium 10 MG TAB PO SCH (20:21)
[2019-02-21] MEDS: traZODone HCl 150 MG TAB PO PRN (20:21)
[2019-02-21] MEDS: Latanoprost 0.005% Ophth Soln 2.5 ml Bottle EA EYE SCH (20:23)
[2019-02-22] MEDS: Levothyroxine Sodium 112 MCG TAB PO SCH (06:33)
[2019-02-22] MEDS: traMADol HCl 50 MG TAB PO PRN ×2 (06:35→15:38)
[2019-02-22] MEDS: Mometasone 100 MCG HFA INHALER INH SCH ×2 (07:06→20:48)
[2019-02-22] MEDS: Ramipril 5 MG CAP PO SCH (08:50)
[2019-02-22] MEDS: Cefepime 1 GM in Sodium Chloride 0.9% 100 ML IVPB SCH ×2 (08:50→20:21)
[2019-02-22] MEDS: Polyethylene Glycol 3350 17 GM Packet PO SCH (08:50)
[2019-02-22] MEDS: Aspirin 81 mg Enteric Coated Tablet PO SCH (08:51)
[2019-02-22] MEDS: Clopidogrel Bisulfate 75 MG TAB PO SCH (08:51)
[2019-02-22] MEDS: Amlodipine 5 MG TAB PO SCH (08:51)
[2019-02-22] MEDS: metFORMIN 500 MG TAB PO SCH ×2 (08:51→16:44)
[2019-02-22] MEDS: Gabapentin 300 MG CAP PO SCH ×3 (08:52→20:21)
[2019-02-22] MEDS: Carvedilol 6.25 MG TAB PO SCH ×2 (08:52→20:21)
[2019-02-22] MEDS: Dorzolamide HCl 2% Ophth Soln 10 ml Bottle EA EYE SCH ×3 (08:53→20:21)
[2019-02-22] MEDS: Metamucil PACK PO SCH ×2 (08:53→20:22)
[2019-02-22] MEDS: Atorvastatin Calcium 10 MG TAB PO SCH (20:20)
[2019-02-22] MEDS: Latanoprost 0.005% Ophth Soln 2.5 ml Bottle EA EYE SCH (20:21)
[2019-02-22] MEDS: traZODone HCl 150 MG TAB PO PRN (21:27)
[2019-02-23] MEDS: Levothyroxine Sodium 112 MCG TAB PO SCH (05:35)
[2019-02-23] MEDS ORDERED: Bisacodyl 5 MG TAB PO PRN (05:49)
[2019-02-23] MEDS: Mometasone 100 MCG HFA INHALER INH SCH ×2 (07:23→18:57)
[2019-02-23] MEDS: Ramipril 5 MG CAP PO SCH (07:40)
[2019-02-23] MEDS: Cefepime 1 GM in Sodium Chloride 0.9% 100 ML IVPB SCH ×2 (07:40→20:58)
[2019-02-23] MEDS: Carvedilol 6.25 MG TAB PO SCH ×2 (07:42→20:57)
[2019-02-23] MEDS: Aspirin 81 mg Enteric Coated Tablet PO SCH (07:42)
[2019-02-23] MEDS: Amlodipine 5 MG TAB PO SCH ×2 (07:43→20:57)
[2019-02-23] MEDS: metFORMIN 500 MG TAB PO SCH ×2 (07:43→16:50)
[2019-02-23] MEDS: Clopidogrel Bisulfate 75 MG TAB PO SCH (07:43)
[2019-02-23] MEDS: Metamucil PACK PO SCH ×2 (07:44→21:10)
[2019-02-23] MEDS: Polyethylene Glycol 3350 17 GM Packet PO SCH (07:44)
[2019-02-23] MEDS: Gabapentin 300 MG CAP PO SCH ×3 (07:44→20:57)
[2019-02-23] MEDS: Dorzolamide HCl 2% Ophth Soln 10 ml Bottle EA EYE SCH ×3 (07:46→21:00)
[2019-02-23] MEDS: traMADol HCl 50 MG TAB PO PRN ×2 (13:32→20:58)
[2019-02-23] MEDS: Atorvastatin Calcium 10 MG TAB PO SCH (20:57)
[2019-02-23] MEDS: traZODone HCl 150 MG TAB PO PRN (20:59)
[2019-02-23] MEDS: Latanoprost 0.005% Ophth Soln 2.5 ml Bottle EA EYE SCH (21:00)
[2019-02-24] MEDS: Levothyroxine Sodium 112 MCG TAB PO SCH (06:00)
[2019-02-24] MEDS: Mometasone 100 MCG HFA INHALER INH SCH ×2 (06:43→19:40)
[2019-02-24] MEDS: Ramipril 5 MG CAP PO SCH (08:10)
[2019-02-24] MEDS: Aspirin 81 mg Enteric Coated Tablet PO SCH (08:10)
[2019-02-24] MEDS: Gabapentin 300 MG CAP PO SCH ×3 (08:11→20:05)
[2019-02-24] MEDS: Polyethylene Glycol 3350 17 GM Packet PO SCH (08:11)
[2019-02-24] MEDS: metFORMIN 500 MG TAB PO SCH ×2 (08:11→16:49)
[2019-02-24] MEDS: Clopidogrel Bisulfate 75 MG TAB PO SCH (08:11)
[2019-02-24] MEDS: Amlodipine 5 MG TAB PO SCH ×2 (08:11→20:05)
[2019-02-24] MEDS: Metamucil PACK PO SCH ×2 (08:11→20:06)
[2019-02-24] MEDS: Dorzolamide HCl 2% Ophth Soln 10 ml Bottle EA EYE SCH ×3 (08:17→20:06)
[2019-02-24] MEDS: Carvedilol 6.25 MG TAB PO SCH ×2 (08:50→20:04)
[2019-02-24] MEDS: Cefepime 1 GM in Sodium Chloride 0.9% 100 ML IVPB SCH ×2 (08:50→20:05)
[2019-02-24] MEDS: Atorvastatin Calcium 10 MG TAB PO SCH (20:05)
[2019-02-24] MEDS: Latanoprost 0.005% Ophth Soln 2.5 ml Bottle EA EYE SCH (20:06)
[2019-02-24] MEDS: traZODone HCl 150 MG TAB PO PRN (21:16)
[2019-02-25] MEDS: Levothyroxine Sodium 112 MCG TAB PO SCH (06:07)
[2019-02-25] MEDS: Mometasone 100 MCG HFA INHALER INH SCH (08:09)
[2019-02-25 08:27] VITALS: BP 137/82; TEMP 97.4
[2019-02-25] MEDS: Amlodipine 5 MG TAB PO SCH (08:36)
[2019-02-25] MEDS: Gabapentin 300 MG CAP PO SCH (08:36)
[2019-02-25] MEDS: Aspirin 81 mg Enteric Coated Tablet PO SCH (08:36)
[2019-02-25] MEDS: metFORMIN 500 MG TAB PO SCH (08:36)
[2019-02-25] MEDS: Clopidogrel Bisulfate 75 MG TAB PO SCH (08:37)
[2019-02-25] MEDS: Dorzolamide HCl 2% Ophth Soln 10 ml Bottle EA EYE SCH (08:37)
[2019-02-25] MEDS: Carvedilol 6.25 MG TAB PO SCH (08:37)
[2019-02-25] MEDS: Ramipril 5 MG CAP PO SCH (08:38)
[2019-02-25] MEDS: Polyethylene Glycol 3350 17 GM Packet PO SCH (08:38)
[2019-02-25] MEDS: Metamucil PACK PO SCH (08:39)
[2019-02-25] MEDS: Cefepime 1 GM in Sodium Chloride 0.9% 100 ML IVPB SCH (08:39)
--- NOTE | 2019-02-26 02:32 | DIS ---
DATE OF ADMISSION: 02/14/2019 DATE OF DISCHARGE: 02/25/2019 The patient recently underwent a left femoral-popliteal bypass. She had a large panniculus and was kept in the hospital several extra days for wound management. She was discharged home with instructions for home health to clean the groin area daily and re-dress. Unfortunately, in the 1st week, the area was cleaned only once and the incision then fell apart. She was readmitted to the hospital on this time for bathing and local wound care. Wound VAC was applied. Cultures obtained, grew pseudomonas and enterococcus consistent with just groin wound. Wound was cleaning up nicely with early granulation and she will be discharged home with a wound VAC and wound care. Levaquin will be continued. Her foot is warm. She has mild edema of the lower leg consistent with her recent surgical intervention. Small callus on her toe has dried up. She will be followed up in my office in 2 weeks and have outpatient wound VAC changes. Job ID: [id number]
--- NOTE | 2019-02-28 09:15 | PQF ---
[facility] Reports MARTHA Gibbons SCHUYLER MESSINA MD [id number] [facility] [id number] CLINICAL DOCUMENTATION CLARIFICATION FORM: POST DISCHARGE Addendum to original discharge summary date: __03/01/19 Late entry note date: __ DATE:02/28/2019 ATTN: SCHUYLER MESSINA MD Please exercise your independent, professional judgment in responding to the clarification form. Clinical indicators are provided on the bottom of this form for your review Please check appropriate box(s): [ ] Postoperative wound infection [ y ] Postoperative wound dehiscence [ y ] Postoperative edema of the lower extremity [ ] Other diagnosis [ ] Unable to determine CLINICAL INDICATORS - SIGNS / SYMPTOMS / LABS - she has mild edema of the lower leg consistent with her recent surgical intervention-DS, 02/25, Misael Huerta MD - cultures obtained, grew pseudomonas and enterococcus consistent with just groin wound-DS, 02/25, Misael Huerta MD - concerns about wound dehiscence- H&P, 02/15, Misael Huerta MD - but no evidence of wound infection at this time- H&P, 02/15, Misael Huerta MD - she has a wound in her left groin with some rothman fat necrosis on the skin edges, debrided- H&P, 02/15, Misael Huerta MD - she has trace edema in the left leg and her other two incisions are healing nicely- H&P, 02/15, Misael Huerta MD RISK FACTORS - left common and profunda femoral endarterectomy with saphenous vein patch- H& P, 02/15, Misael Huerta MD - left femoral-popliteal bypass with gore-Stuart to below the knee on 02/02- H&P, 02/15, Misael Huerta MD -PMH: PVD- H&P, 02/15, Misael Huerta MD TREATMENT: -admission for wound care-DS, 02/25, Misael Huerta MD -wound vac applied-DS, 02/25, Misael Huerta MD -[email or web address]. (This form is maintained as a part of the permanent medical record) 2014 [employer] All Rights Reserved Melva Oliva [not provided] [not provided] MTDD
== END 2019-02-25 10:08 | disposition home health service (06) | DRG 921 ==
LOC: T4-A 15:41
PROVIDERS: ADMIT Thoracic Surgery (Cardiothoracic Vascular Surgery); ATTEND Thoracic Surgery (Cardiothoracic Vascular Surgery)
DX: T81.30XA Disruption of wound, unspecified, initial encounter (principal); T81.89XA Other complications of procedures, not elsewhere classified, initial encounter; I10 Essential (primary) hypertension; E11.9 Type 2 diabetes mellitus without complications; I73.9 Peripheral vascular disease, unspecified; H40.9 Unspecified glaucoma; J45.909 Unspecified asthma, uncomplicated; Y83.9 Surgical procedure, unspecified as the cause of abnormal reaction of the patient, or of later complication, without mention of misadventure at the time of the procedure; Z88.2 Allergy status to sulfonamides
CPT/HCPCS: 36415; 36416; 80048; 85025; 87070; 87077; 87186; 87205; 94664; J0692; J3490